=== PATIENT | male | born 1995 | race Two or more races ===

== ENCOUNTER 2022-05-10 20:09 | Emergency (ER) | payer OTHER ==
[~2022-05-10] VITALS: Ht 172.7 cm; Wt 182.0 kg
[2022-05-10 20:35] VITALS: BP 120/70
== END 2022-05-10 23:29 | disposition home or self-care (01) ==
LOC: ER 20:11
DX: M79.644 Pain in right finger(s) (principal); Z88.2 Allergy status to sulfonamides
CPT/HCPCS: 73130